=== PATIENT | female | born 2000 | race Caucasian/White ===

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

== ENCOUNTER 2023-11-27 02:34 | Emergency (ER) | payer MEDICAID, OTHER ==
[2023-11-27 02:51] VITALS: BP 149/77; O2SAT 99
--- NOTE | 2023-11-27 03:36 | ED Physician Documentation ---
PD HPI HEENT - Stated complaint Stated Complaint: R EYE PX - Chief complaint Chief Complaint: Heent - History obtained from History obtained from: Patient - Additional information Additional information: The patient comes to the emergency department chief complaint of redness and swelling of right lower eyelid for about the last 12 days. She states that initially, she had puffiness of both her upper and lower eyelids more generally and had a little bit of redness throughout most of her lower eyelid. However since that time, the general swelling has gone down and the symptoms have localized to a very small "bump" on the patient's lower lid. However, she does sometimes feel some pain out toward her inferolateral orbital bony area and also, along the right side of her nasal bridge. No new swelling. No eye redness or drainage. No nasal drainage. She does not wear contacts. No visual changes. No other complaints at this time. PD PAST MEDICAL HISTORY - Past Medical History Past Medical History: Yes Respiratory: Asthma - Past Surgical History Past Surgical History: No - Present Medications Home Medications: Ambulatory Orders Medication Instructions Recorded Confirmed Albuterol [Ventolin Hfa] 2 puffs INH Q4H PRN #2 inhaler 08/26/13 11/27/23 - Allergies Allergies/Adverse Reactions: Allergies Allergy/AdvReac Type Severity Reaction Status Date / Time ipratropium bromide * Allergy Intermediate Rash Verified 11/27/23 02:44 [From Atrovent] - Social History Does the pt smoke?: No Smoking Status: Never smoker Does the pt drink ETOH?: No Does the pt have substance abuse?: No - Immunizations Immunizations are current?: Yes - POLST Patient has POLST: No PD ED PE NORMAL - Vitals Vital signs reviewed: Yes - General General: Alert and oriented X 3, No acute distress, Well developed/nourished - HEENT HEENT: Atraumatic, PERRL, EOMI, Moist mucous membranes, Other (Small, 4 mm diameter chalazion involving right lower eyelid. No drainage. No edema, erythema, or tenderness around the eye otherwise. No facial swelling or asymmetry.) - Neck Neck: Supple, no meningeal sign - Respiratory Respiratory: No respiratory distress - Derm Derm: Normal color, Warm and dry, No rash - Extremities Extremities: No deformity - Neuro Neuro: Other (Grossly intact) - Psych Psych: Normal mood, Normal affect Results - Vitals Vitals: Oxygen O2 Source Room air PD Medical Decision Making - ED course Complexity details: considered differential, d/w patient ED course: I discussed with the patient that this chalazion appears to be running its course there is really nothing else to do for it at this point in time. I have encouraged her to continue doing hot packs. I have advised her that it may take several weeks for this to go away, and that I do not find any other evidence of any problem with her eye or face otherwise. Patient is stable for discharge home. We have discussed the usual indications for follow-up and return. Departure - Departure Disposition: Home, Self Care Clinical Impression: Chalazion Qualifiers: Laterality: right Eyelid: lower Qualified Code(s): H00.12 - Chalazion right lower eyelid Condition: Stable Instructions: ED Chalazion Follow-Up: Enoc Benson MD [Provider Admit Priv/Credential] - Comments: You have a stye on your lower eyelid which actually appears fairly small. There is no evidence of infection of the surrounding tissues. The primary treatment for a stye is hot compresses and time. Styes can often last for several weeks before finally resolving on their own. If you wish to follow-up with an eye clinic manager you certainly may, and Dr. Benson's office contact info has been provided for you. Forms: PCP List Discharge Date/Time: 11/27/23 03:47
== END 2023-11-27 03:47 | disposition home or self-care (01) ==
LOC: ED 02:34
DX: H00.12 Chalazion right lower eyelid (principal)
CPT/HCPCS: 99281; 99282